=== PATIENT | male | born 1955 | race Caucasian/White ===

== ENCOUNTER 2016-11-15 23:42 | Emergency (ER) | payer MEDICARE, MEDICAID | END 2016-11-16 02:59 | disposition home or self-care (01) | LOC: ED 23:42 | DX: S01.21XA Laceration without foreign body of nose, initial encounter (principal); W19.XXXA Unspecified fall, initial encounter; Y92.099 Unspecified place in other non-institutional residence as the place of occurrence of the external cause; Y99.8 Other external cause status; Z79.899 Other long term (current) drug therapy; Z88.5 Allergy status to narcotic agent ==